=== PATIENT | male | born 1965 | race Caucasian/White ===

== ENCOUNTER 2018-03-03 09:10 | Inpatient (IN) | payer OTHER ==
[~2018-03-03 09:10] MED LIST: CEFAZOLIN 1 GM INJ
[2018-03-03 10:14] LABS: ADD MAN DIFF? NO
[2018-03-03 10:16] LABS: WHITE BLOOD COUNT 9.8 10^3/ul (4.8-10.8)
[2018-03-03 10:16] LABS: BASOPHIL # 0.1 10^3/ul (0.0-0.1); BASOPHILS % 0.6 % (0.0-2.0); EOSINOPHILS # 0.2 10^3/ul (0.0-0.5); EOSINOPHILS % 1.7 % (0.0-7.0); HEMOGLOBIN 15.3 g/dl (14.0-18.0); LYMPHOCYTES # 2.5 10^3/ul (0.8-2.9); LYMPHOCYTES % 25.8 % (15.0-51.0); MEAN CORPUSCULAR HEMOGLOBIN 31.2 pg (29.0-33.0); MEAN CORPUSCULAR HGB CONC 33.3 g/dl (32.0-37.0); MEAN CORPUSCULAR VOLUME 93.7 fl (82.0-101.0); MEAN PLATELET VOLUME 8.7 fl (7.4-10.4); MONOCYTE # 1.1 10^3/ul (0.3-0.9); MONOCYTES % 11.1 % (0.0-11.0); NEUTROPHIL # 5.9 10^3/ul (1.6-7.5); NEUTROPHILS % 59.9 % (39.0-77.0); PLATELET COUNT 347 10^3/UL (140-415); RED BLOOD COUNT 4.91 10^6/ul (4.70-6.10); RED CELL DISTRIBUTION WIDTH 13.4 % (11.5-14.5)
[2018-03-03 10:24] LABS: ADD UMIC NO; UR ASCORBIC ACID NEGATIVE (NEGATIVE); UR BILIRUBIN (Dip) NEGATIVE (NEGATIVE); UR BLOOD (Dip) NEGATIVE (NEGATIVE); UR CLARITY CLEAR (CLEAR); UR COLOR YELLOW (YELLOW); UR GLUCOSE (Dip) NEGATIVE (NEGATIVE); UR KETONES (Dip) NEGATIVE (NEGATIVE); UR LEUKOCYTE ESTERASE (Dip) NEGATIVE Leu/ul (NEGATIVE); UR NITRITE (Dip) NEGATIVE (NEGATIVE); UR SPECIFIC GRAVITY (Dip) 1.011 (1.003-1.030); UR TOTAL PROTEIN (Dip) NEGATIVE (NEGATIVE); UR UROBILINOGEN (Dip) NEGATIVE (NEGATIVE)
[2018-03-03 10:32] LABS: ALANINE AMINOTRANSFERASE 27 IU/L (13-69); ALBUMIN 4.1 g/dl (3.3-4.9); ALBUMIN/GLOBULIN RATIO 1.36; ALKALINE PHOSPHATASE 70 IU/L (42-121); ANION GAP 10 (8-16); ASPARTATE AMINO TRANSFERASE 21 IU/L (15-46); BILIRUBIN,INDIRECT 0.5 mg/dl (0-1.1); BILIRUBIN,TOTAL 0.5 mg/dl (0.2-1.3); CARBON DIOXIDE 28 mmol/L (21-31); CHLORIDE 104 mmol/L (97-110); GLUCOSE 103 mg/dl (70-220); TOTAL PROTEIN 7.1 g/dl (6.1-8.1)
[2018-03-03 10:33] LABS: BLOOD UREA NITROGEN 16 mg/dl (7-20); CALCIUM 9.4 mg/dl (8.4-10.2); CREATININE 0.99 mg/dl (0.61-1.24); POTASSIUM 4.2 mmol/L (3.5-5.1); SODIUM 138 mmol/L (135-144)
[2018-03-03 10:48] LABS: PROTIME 13.3 Sec (11.9-14.9)
[2018-03-03 10:49] LABS: PARTIAL THROMBOPLASTIN TIME 34.3 Sec (25.0-35.0)
[2018-03-03] MEDS: HYDROmorphONE 1 MG/ML SYG IV ×3 (11:18→23:35)
[2018-03-03] MEDS ORDERED: ONDANSETRON 4 MG INJ IV ×3 (12:30→14:00)
[2018-03-03] MEDS ORDERED: METOCLOPRAMIDE 10 MG INJ (12:34)
[2018-03-03] MEDS ORDERED: ONDANSETRON 4 MG INJ (12:34)
[2018-03-03] MEDS ORDERED: SUCCINYLCHOLINE CHLORIDE 100 MG/5 ML SYG IV (12:34)
[2018-03-03] MEDS ORDERED: ROCURONIUM 50 MG INJ (12:34)
[2018-03-03] MEDS ORDERED: PROPOFOL 20 ML ×2 (12:34→13:26)
[2018-03-03] MEDS ORDERED: HYDROmorphONE 2 MG/ML SYG (12:34)
[2018-03-03] MEDS ORDERED: MIDAZOLAM 1 MG/ML 2 ML INJ (12:34)
[2018-03-03] MEDS ORDERED: FENTAnyl 50 MCG/ML VIAL (12:59)
[2018-03-03] MEDS ORDERED: niCARdipine 50 MG in SOD CHLORIDE 0.9% 480 ML IV (13:00)
[2018-03-03] MEDS ORDERED: hydrALAzine 20 MG INJ (13:27)
[2018-03-03] MEDS ORDERED: DEXAMETHASONE 4 MG/ML 1 ML INJ (13:30)
[2018-03-03] MEDS: GELATIN SIZE 100 SPONGE (13:31)
[2018-03-03] MEDS: LIDOCAINE 1%/EPI 30 ML INJ (13:31)
[2018-03-03] MEDS: POLYMYXIN/BACITRACIN 1L IRRIG IRR (13:32)
[2018-03-03] MEDS: THROMBIN 5000 UNIT VIAL (13:32)
[2018-03-03] MEDS ORDERED: POLYMYXIN/BACITRACIN 1L IRRIG (13:32)
[2018-03-03] MEDS ORDERED: NALOXONE (0.4 MG/ML) INJ IV (14:00)
[2018-03-03] MEDS ORDERED: EPHEDrine SULFATE 50 MG/5 ML SYG IV (14:00)
[2018-03-03] MEDS ORDERED: HYDROmorphONE 1 MG/5 ML IV SYRINGE IV ×3 (14:00)
[2018-03-03] MEDS ORDERED: MEPERIDINE 25 MG INJ IV (14:00)
[2018-03-03] MEDS ORDERED: HYDROmorphONE 0.5 MG/0.5 ML SYG IV (14:00)
[2018-03-03] MEDS ORDERED: NEOSTIGMINE 3 MG/3 ML SYRINGE (14:25)
[2018-03-03] MEDS ORDERED: GLYCOPYRROLATE 0.4 MG INJ (14:25)
[2018-03-03] MEDS: HYDROmorphONE 0.2 MG/ML PCA IV ×2 (15:09→21:23)
[2018-03-03] MEDS ORDERED: LABETALOL HCL 20MG INJ (15:15)
[2018-03-03] MEDS: DIPHENHYDRAMINE 50 MG INJ IV (15:16)
[2018-03-03] MEDS: LABETALOL HCL 20MG INJ IV ×2 (15:40→16:09)
[2018-03-03] MEDS: HYDROmorphONE 0.5 MG/0.5 ML SYG IV ×2 (15:43→21:40)
[2018-03-03] MEDS: OXYCODONE/ACETAMINOPHEN (5/325) TAB PO ×2 (17:03→23:34)
[2018-03-03] MEDS: DEXAMETHASONE 4 MG/ML 1 ML INJ IV ×2 (18:19→23:43)
[2018-03-03] MEDS: NICOTINE (14 MG/24 HR) PATCH TRANSDERM (18:41)
[2018-03-03] MEDS: DEXTROSE 5%-LR 1,000 ML IV ×2 (18:41→20:13)
[2018-03-03] MEDS: LORAZEPAM 1 MG TAB PO (20:13)
[2018-03-03] MEDS: CEFAZOLIN 1 GM/50 ML (PMX) 50 ML IVPB ×2 (21:39→22:00)
[2018-03-03] MEDS ORDERED: HYDROmorphONE 0.2 MG/ML PCA IV (22:00)
[2018-03-04] MEDS: DIPHENHYDRAMINE 50 MG INJ IV (02:35)
[2018-03-04] MEDS: HYDROmorphONE 0.5 MG/0.5 ML SYG IV (02:35)
[2018-03-04] MEDS: DEXTROSE 5%-LR 1,000 ML IV ×3 (04:30→20:01)
[2018-03-04] MEDS: DEXAMETHASONE 4 MG/ML 1 ML INJ IV ×3 (05:35→18:26)
[2018-03-04] MEDS: OXYCODONE/ACETAMINOPHEN (5/325) TAB PO ×3 (05:35→23:07)
[2018-03-04] MEDS: LORAZEPAM 1 MG TAB PO ×2 (05:35→10:19)
[2018-03-04 05:51] LABS: ADD MAN DIFF? NO
[2018-03-04 05:54] LABS: WHITE BLOOD COUNT 16.8 10^3/ul (4.8-10.8)
[2018-03-04 05:54] LABS: ABNORMAL IP MESSAGE 1; BASOPHILS % 0.1 % (0.0-2.0); HEMATOCRIT 43.2 % (42.0-52.0); HEMOGLOBIN 14.9 g/dl (14.0-18.0); LYMPHOCYTES # 0.6 10^3/ul (0.8-2.9); LYMPHOCYTES % 3.5 % (15.0-51.0); MEAN CORPUSCULAR HEMOGLOBIN 31.6 pg (29.0-33.0); MEAN CORPUSCULAR HGB CONC 34.5 g/dl (32.0-37.0); MEAN CORPUSCULAR VOLUME 91.7 fl (82.0-101.0); MEAN PLATELET VOLUME 9.2 fl (7.4-10.4); MONOCYTE # 0.6 10^3/ul (0.3-0.9); MONOCYTES % 3.7 % (0.0-11.0); NEUTROPHIL # 15.4 10^3/ul (1.6-7.5); NEUTROPHILS % 91.9 % (39.0-77.0); PLATELET COUNT 326 10^3/UL (140-415); POSITIVE DIFF @See below; RED BLOOD COUNT 4.71 10^6/ul (4.70-6.10); RED CELL DISTRIBUTION WIDTH 13.2 % (11.5-14.5)
[2018-03-04] MEDS: CEFAZOLIN 1 GM/50 ML (PMX) 50 ML IVPB ×3 (05:54→18:25)
[2018-03-04 06:16] LABS: ANION GAP 10 (8-16); BLOOD UREA NITROGEN 15 mg/dl (7-20); CALCIUM 9.5 mg/dl (8.4-10.2); CARBON DIOXIDE 28 mmol/L (21-31); CHLORIDE 105 mmol/L (97-110); CREATININE 0.68 mg/dl (0.61-1.24); GLUCOSE 159 mg/dl (70-220); POTASSIUM 4.2 mmol/L (3.5-5.1); SODIUM 139 mmol/L (135-144)
[2018-03-04] MEDS: morphine 2 MG INJ IV (07:33)
[2018-03-04] MEDS: NICOTINE (14 MG/24 HR) PATCH TRANSDERM (08:08)
[2018-03-04] MEDS ORDERED: LORAZEPAM 2 MG INJ (11:12)
[2018-03-04] MEDS: LORAZEPAM 2 MG INJ IV (11:27)
[2018-03-04] MEDS: ALPRAZOLAM 0.25 MG TAB PO (15:07)
[2018-03-04] MEDS ORDERED: ALPRAZOLAM 0.5 MG TAB PO (17:00)
[2018-03-05] MEDS: HYDROCODONE/APAP (5/325) TAB PO (00:15)
[2018-03-05] MEDS: DEXTROSE 5%-LR 1,000 ML IV ×2 (02:26→12:30)
[2018-03-05] MEDS: OXYCODONE/ACETAMINOPHEN (5/325) TAB PO ×2 (07:42→16:11)
[2018-03-05] MEDS: NICOTINE (14 MG/24 HR) PATCH TRANSDERM (09:39)
[2018-03-05] MEDS: ALPRAZOLAM 1 MG TAB PO (12:34)
[2018-03-05] MEDS ORDERED: LORAZEPAM 2 MG INJ IV (14:00)
[2018-03-05] MEDS ORDERED: ALPRAZOLAM 0.5 MG TAB PO (17:00)
== END 2018-03-05 17:00 | disposition home or self-care (01) | DRG 473 ==
LOC: REC 09:10 → ICU 16:51 → MS2 03-04 22:27
PROC: 0RG10A0 Fusion of Cervical Vertebral Joint with Interbody Fusion Device, Anterior Approach, Anterior Column, Open Approach (ICD-10-PCS; principal; 2018-03-03 11:30)
PROC: 0RB30ZZ Excision of Cervical Vertebral Disc, Open Approach (ICD-10-PCS; 2018-03-03 11:30)
PROC: 00NW0ZZ Release Cervical Spinal Cord, Open Approach (ICD-10-PCS; 2018-03-03 11:30)
DX: M50.022 Cervical disc disorder at C5-C6 level with myelopathy (principal)
CPT/HCPCS: 71045; 72040; 80048; 80053; 81003; 85025; 85610; 85730; 86850; 86900; 86901; 87086; 93005; 97161